=== PATIENT | female | born 1985 | race Caucasian/White ===

== ENCOUNTER 2018-06-10 18:53 | Emergency (ER) | payer OTHER, BC ==
[2018-06-10 19:03] VITALS: BP 122/78; PULSE 105; TEMP 98.2; BMI 38.9
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
[2018-06-10] MEDS ORDERED: KETOROLAC TROMETHAMINE 30 MG/1 ML VIAL IM ONE (20:02)
[2018-06-10] MEDS ORDERED: KETOROLAC TROMETHAMINE 30 MG/1 ML VIAL ONE (20:04)
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
== END 2018-06-10 20:11 | disposition home or self-care (01) ==
LOC: JERFT 18:53
PROC: 3E0233Z Introduction of Anti-inflammatory into Muscle, Percutaneous Approach (ICD-10-PCS; principal; 2018-06-10)
DX: M62.838 Other muscle spasm (principal); V44.5XXA Car driver injured in collision with heavy transport vehicle or bus in traffic accident, initial encounter; Y92.481 Parking lot as the place of occurrence of the external cause; Y93.89 Activity, other specified; Y99.8 Other external cause status
CPT/HCPCS: 84703; 99281-25

== ENCOUNTER 2019-07-17 12:37 | Emergency (ER) | payer BC, OTHER ==
[2019-07-17 12:49] VITALS: BMI 38.9
--- NOTE | 2019-07-17 13:22 | PDOC ---
History of Present Illness - General Chief Complaint: Chest Pain Stated Complaint: chest pain Past History - Past Medical History Allergies/Adverse Reactions: Allergies Allergy/AdvReac Type Severity Reaction Status Date / Time No Known Drug Allergies Allergy Verified 07/17/19 12:46 VANILLA Allergy Hives Uncoded 07/17/19 12:46 Home Medications: Ambulatory Orders Calcium Carb, Citrate/Vit D3 [Citracal + D ER Tablet] 1 each PO BID 07/17/19 Multivitamin [One-Daily Multi-Vitamin] 1 each PO DAILY 07/17/19 Vitamin A 0 unit PO DAILY 07/17/19 Asthma: Yes COPD: No Diabetes: Yes (type 2) HTN: Yes - Surgical History GI Surgery: Yes (sleeve 05/02/19) - Reproductive History (#): 2 Para: 1 - Immunization History Immunization Up to Date: Yes - Psycho Social/Smoking Cessation Hx Smoking Status: No Smoking History: Never smoked Have you smoked in the past 12 months: No Number of Cigarettes Smoked Daily: 0 Information on smoking cessation initiated: No Hx Alcohol Use: No Drug/Substance Use Hx: No Substance Use Type: None *Physical Exam - Vital Signs Last Vital Signs Temp Pulse Resp BP Pulse Ox 98.7 F 84 18 159/100 100 07/17/19 12:46 07/17/19 12:46 07/17/19 12:46 07/17/19 12:46 07/17/19 12:46 ED Treatment Course - LABORATORY CBC & Chemistry Diagram: 07/17/19 14:45 07/17/19 14:45 Medical Decision Making - Medical Decision Making 07/17/19 14:16 HPI: 34yo F hx HTN, HLD, pre-diabetes, LLE DVT (during , was on lovenox, not on AC currently), PCOS, obesity, GERD, and gastric sleeve 05/02/19 (by Dr Shabazz at [facility], 40lb wt loss, no complications) presents from home with acute onset at 1230 while at rest constant stabbing pleuritic L-sided CP radiating to LUE with associated LUE numbness/tingling (resolved), nausea, and hematemesis x1 of 1/2cup bright red blood only. Now just chest soreness and generalized soreness especially in chest and head. Only had cup coffee this AM. Not eating much since surgery due to sleeve, weight loss 40lbs. No hx similar sx, but hx headaches with hematemesis prior to surgery, but that hematemesis was just streaking, never all blood like this. Has implanon control. Denies coffee ground vomit, trauma, HEARN, back pain, fever, chills, fatigue, dizziness, weakness, vision changes, shortness of breath, cough, palpitations, leg swelling , calf tenderness, recent travel, recent illness, complications since surgery, abdominal pain, blood in stool, diarrhea, constipation, dysuria, hematuria, confusion. Endoscope this year prior to surgery showed H Pylori, completed tx. PCP - Abel Conroy Bariatric - Mele at [facility] GI - Dr Fracisco Cook at [facility] ROS: Constitutional: Negative for chills, fever, fatigue, diaphoresis. HENT: Negative for sore throat, rhinorrhea, congestion. Eyes: Negative for visual disturbance. Respiratory: Negative for shortness of breath, cough, and wheezing. Cardiovascular: Negative for chest pain, palpitations, and leg swelling. Gastrointestinal: Positive for weight loss, hematemesis, nausea. Negative for abdominal pain, blood in stool, constipation, diarrhea. Genitourinary: Negative for dysuria, flank pain, and hematuria. Musculoskeletal: Negative for myalgias, back pain, and neck pain. Skin: Negative for rash. Neurological: Negative for light-headedness, dizziness, vertigo, syncope, weakness, numbness and headaches. Psychiatric/Behavioral: Negative for behavioral problems and confusion. PE: Gen: Alert, NAD, comfortable-appearing. HEENT: PERRL, EOMI, MMM, NCAT. No conjunctival pallor. Sclera are non-icteric. Oropharynx is clear. CV: Regular rate and rhythm. No murmurs, rubs, or gallops. PULM: No resp distress. CTAB, no wheezes, rales, or rhonchi. ABD: soft, NT/ND, no rebound tenderness or guarding, no CVA tenderness. BACK: No TTP of c/t/l-spine. No step-offs or deformities. MSK: No bony deformities. 2+ pulses in all extremities. NEURO: AAOx3. PERRL. No gross CN deficits. Strength and sensation grossly intact throughout. EXTREMITIES: No cyanosis. No clubbing. No edema. No calf tenderness. PSYCH: Normal mood and thought pattern. SKIN: Warm and dry. Normal capillary refill. No rashes. No jaundice. MDM: 34yo F hx HTN, HLD, pre-diabetes, LLE DVT (during , was on lovenox, not on AC currently), PCOS, obesity, GERD, and gastric sleeve 05/02/19 ([address] Dr Shabazz at [facility], 40lb wt loss, no complications) presents from home with acute onset constant stabbing pleuritic L-sided CP radiating to LUE with associated LUE numbness/tingling (resolved), nausea, and hematemesis x1 of 1/2cup bright red blood only. Now just chest soreness and generalized soreness. Hemodynamically stable, afebrile, benign exam. Hematemesis and chest pain acute onset concerning for esophageal rupture. Also consider UGIB due to esophagitis, PUD, gastritis, varices, or complication of surgery. Chest pain ddx also includes PE (high concern due to recent surgery, hx DVT, Wells 4.5 moderate), ACS/AZ (HEART 2 due to RFs), PNA, COPD exacerbation , infectious etiologies, anemia, metabolic derangements, or . Lack of tearing nature of chest pain, lack of back pain, lack of hemodynamic instability , and pulses equal bilaterally, dissection of very low concern - no further testing indicated. Spoke with Dr liriano for bariatric surgeon Dr Marin Shabazz at [phone] - agree with current plan, requested CT abdomen/pelvis w/oral contrast in addition to CTPE, not concerned for esophageal rupture due to CXR and presentation and VS, call back with results. -EKG -CXR -CTPE, CTAP w/IV and oral contrast (started at 1445) -CBC,CMP,Coags,Mg,Phos,Lipase,Cardiac profile,Lact,HCG -Consult bariatric surgery -Consider endoscopy and esophagram -Dispo: pending w/u and bariatric rec 07/17/19 15:46 EKG reviewed - NSR, 78bpm, normal axis, prolonged QT, QTc 487ms, no e/o acute ischemia CXR reviewed - no acute pathology Labs reviewed - no concerning findings. 07/17/19 18:24 Pt comfortable, no further sx at this time. CTs reviewed - 1. No evidence of acute pulmonary embolism. 2. Mild to moderate degree cardiomegaly with mild degree of pulmonary venous congestion. The tracheobronchial tree is grossly patent. There is no airspace consolidation or pleural effusion. 3. Small sliding hiatal hernia. Postsurgical changes following gastric sleeve procedure. No evidence of small bowel obstruction or mass. Normal appendix is identified. 4. Heterogeneous and enlarged uterus concerning for fibroids Bariatric surgery called - told to call [phone] - spoke with senior clinical consultant doctor , will consult Dr Shabazz and call me back. -2nd CBC and trop ordered to trend. 07/17/19 18:54 Spoke with bariatric surgery - accepted transfer under Dr Shabazz. Began transfer procedures. Discharge - Discharge Information Problems reviewed: Yes Clinical Impression/Diagnosis: Hematemesis, Chest pain Condition: Stable Disposition: TRANSFER ACUTE CARE/OTHER HOSP - Admission No - Follow up/Referral Referrals: Abel Schroeder MD [Primary Care Provider] - - Patient Discharge Instructions - Post Discharge Activity
--- NOTE | 2019-07-17 14:58 | PDOC ---
Documentation entered by Ana Honeycutt SCRIBE, acting as scribe for Keith Hou MD. Keith Hou MD: This documentation has been prepared by the Tangela foley Joy, SCRIBE, under my direction and personally reviewed by me in its entirety. I confirm that the documentation accurately reflects all work, treatment, procedures, and medical decision making performed by me. Attending Attestation - Resident Resident Name: Kerry Leblanc - ED Attending Attestation I have performed the following: I have examined & evaluated the patient, The case was reviewed & discussed with the resident, I agree w/resident's findings & plan, Exceptions are as noted - HPI HPI: 07/17/19 14:50 The patient is a 34 year old female with significant past medical history of hypertension, hyperlipidemia, diabetes, and polycystic ovarian syndrome who presents to the ED with midsternal chest pain, shortness of breath and hematemesis. Patient had a sudden onset of midsternal pain with associated shortness of breath around 12:30 PM earlier today at rest. Half an hour later, patient had an episode of vomiting where she threw up half a cup of bright red blood. Patient also reports left upper extremity numbness a/w with the chest pain earlier for a few seconds.. Patient had a recent gastric sleeve in April of this year (Dr. Marin Shabazz at [facility]). She states she has never had symptoms like this in the past. Denies fever or chills. Denies dizziness, focal weakness, headache, dark or bloody stools, abd pain, dysuria, LE edema. Denies any other symptoms. - Physicial Exam PE: 07/17/19 14:52 GENERAL: Awake, alert, and fully oriented, in no acute distress. Non toxic, well appearing. HEAD: No signs of trauma EYES: PERRLA, EOMI, sclera anicteric, conjunctiva clear ENT: Oropharynx clear without exudates. Moist mucosa. No blood in OP NECK: Normal ROM, supple, no lymphadenopathy, JVD, or masses. No crepitus LUNGS: Breath sounds equal, clear to auscultation bilaterally. No wheezes, and no crackles HEART: Regular rate and rhythm, normal S1 and S2, no murmurs, rubs or gallops. No crepitus ABDOMEN: Soft, nontender, normoactive bowel sounds. No guarding, no rebound. No masses EXTREMITIES: Normal range of motion, no edema. No clubbing or cyanosis. No cords , erythema, or tenderness BACK: No midline spinal tenderness in cervical/thoracic/lumbar region NEUROLOGICAL: Normal speech, cranial nerves intact, negative pronator drift, 5/ 5 strength in all 4 extremities, normal sensation to light touch in all 4 extremities, normal cerebellar exam, normal gait SKIN: Warm, Dry, normal turgor, no rashes or lesions noted. - Medical Decision Making 07/17/19 14:31 34-year-old female status post recent gastric bypass at [facility] in April 2019 presents the emergency department with sudden onset chest pain, shortness of breath followed by an episode of bright red hematemesis. Vitals on arrival with elevated blood pressure, however this normalized without intervention. Otherwise vitals within normal limits. Exam unremarkable. EKG nonischemic. Differential includes esophageal rupture versus pulmonary embolism versus acute coronary syndrome versus pneumonia versus gastritis versus GERD. Chest x-ray thus far with no evidence of pneumomediastinum, pneumothorax, or pneumoperitoneum. This is not the most sensitive measure for esophageal rupture and thus case has been discussed with the patient's bariatric surgeon at [facility] who is not as concerned for esophageal rupture given patient's pain has subsided in the emergency department. Patient has multiple risk factors for pulmonary embolism including control, recent surgery, and history of DVT while . As such we will proceed with a CTA of the chest to rule out PE. Patient's bariatric surgeon also requested a CT scan of the abdomen and pelvis with p.o contrast Plan for labs, urinalysis, CTA of the chest, CTA abdomen and pelvis with IV and p.o. contrast, monitoring and reassess.
[2019-07-17 15:02] LABS: BASO % 0.5 % (0-2.0); EOS % 1.5 % (0-4.5); HEMATOCRIT 42.7 % (32.4-45.2); HEMOGLOBIN 14.3 GM/dL (10.7-15.3); LYMPH % 27.4 % (8-40); MCH 30.2 pg (25.7-33.7); MCHC 33.6 g/dl (32.0-36.0); MEAN CELL VOLUME 89.9 fl (80-96); MEAN PLT VOLUME 9.5 fl (7.5-11.1); MONO % 4.2 % (3.8-10.2); NEUT % 66.4 % (42.8-82.8); PLATELET COUNT 334 K/MM3 (134-434); RBC 4.74 M/mm3 (3.60-5.2); RDW 13.1 % (11.6-15.6); WHITE BLOOD COUNT 8.3 K/mm3 (4.0-10.0)
[2019-07-17 15:15] LABS: INR 1.1 (0.83-1.09)
[2019-07-17 15:18] LABS: ACTIVATED PTT 36.7 SECONDS (25.2-36.5)
[2019-07-17 15:30] LABS: ALK PHOS 58 U/L (45-117); ANION GAP 9 MMOL/L (8-16); BILIRUBIN,TOTAL 0.4 mg/dL (0.2-1); BLOOD UREA NITROGEN 10.3 mg/dL (7-18); CALCIUM 9.5 mg/dL (8.5-10.1); CHLORIDE 107 mmol/L (98-107); CO2 25 mmol/L (21-32); CREATININE 0.7 mg/dL (0.55-1.3); GLUCOSE,RANDOM 79 mg/dL (74-106); LIPASE 114 U/L (73-393); MAGNESIUM 2.4 mg/dL (1.8-2.4); PHOSPHOROUS 3.4 mg/dL (2.5-4.9); SGOT/AST 14 U/L (15-37); SGPT/ALT 20 U/L (13-61); SODIUM 141 mmol/L (136-145); TOT PROT 7.9 g/dl (6.4-8.2)
--- NOTE | 2019-07-17 17:50 | EKG ---
Test Reason : Blood Pressure : / mmHG Vent. Rate : 078 BPM Atrial Rate : 078 BPM P-R Int : 146 ms QRS Dur : 080 ms QT Int : 428 ms P-R-T Axes : 062 032 031 degrees QTc Int : 487 ms POOR DATA QUALITY, INTERPRETATION MAY BE ADVERSELY AFFECTED NORMAL SINUS RHYTHM PROLONGED QT ABNORMAL ECG WHEN COMPARED WITH ECG OF 27-AUG-2015 11:10, NO SIGNIFICANT CHANGE WAS FOUND Confirmed by AMARI RODRIGEZ MD ([id number]) on 07/17/2019 5:50:04 PM Referred By: Confirmed By:AMARI RODRIGEZ MD
--- NOTE | 2019-07-17 18:48 | PDOC ---
*Physical Exam - Vital Signs Last Vital Signs Temp Pulse Resp BP Pulse Ox 98.7 F 84 18 139/86 100 07/17/19 12:46 07/17/19 13:41 07/17/19 13:41 07/17/19 13:41 07/17/19 13:41 ED Treatment Course - LABORATORY CBC & Chemistry Diagram: 07/17/19 19:38 07/17/19 14:45 - ADDITIONAL ORDERS Additional order review: Laboratory Results 07/17/19 07/17/19 07/17/19 14:45 14:45 14:45 PT with INR INR PTT (Actin FS) Sodium 141 Potassium 4.0 Chloride 107 Carbon Dioxide 25 Anion Gap 9 BUN 10.3 Creatinine 0.7 Est GFR (CKD-EPI)AfAm 131.94 Est GFR (CKD-EPI)NonAf 113.84 Random Glucose 79 Lactic Acid 0.9 Calcium 9.5 Phosphorus 3.4 Magnesium 2.4 Total Bilirubin 0.4 AST 14 L ALT 20 Alkaline Phosphatase 58 Creatine Kinase 67 Troponin I < 0.02 Total Protein 7.9 Albumin 4.0 Lipase 114 Beta HCG, Quant < 1.0 Blood Type AB POSITIVE Antibody Screen Negative 07/17/19 14:45 PT with INR 13.00 INR 1.10 H PTT (Actin FS) 36.7 H Sodium Potassium Chloride Carbon Dioxide Anion Gap BUN Creatinine Est GFR (CKD-EPI)AfAm Est GFR (CKD-EPI)NonAf Random Glucose Lactic Acid Calcium Phosphorus Magnesium Total Bilirubin AST ALT Alkaline Phosphatase Creatine Kinase Troponin I Total Protein Albumin Lipase Beta HCG, Quant Blood Type Antibody Screen 07/17/19 14:45 RBC 4.74 MCV 89.9 MCHC 33.6 RDW 13.1 MPV 9.5 Neutrophils % 66.4 Lymphocytes % 27.4 Monocytes % 4.2 Eosinophils % 1.5 Basophils % 0.5 Medical Decision Making - Medical Decision Making 07/17/19 18:45 Pt s/p gastric bypass @[facility] in Apr of this year. She now has epigastric pain and she coughed/vomited up 1/4 cup of blood. She is pending CTA chest to r/o PE and she is awaiting CT abd/pelvis to r/o esophageal perforation/other perf. Her labs are normal and her vitals are ok. She will likely be admitted for observation and serial CBC to look for falling hb/hct and rising WBC 07/17/19 18:55 Pt will be transferred to the [facility] floor vs ER Her bariatric surgeon agrees that she requires an endoscopy Patient Name: CHIKIS BURROWS THIS IS A PRELIMINARY REPORT FROM [facility]. DATE OF SERVICE: 2019-07-17 17:16:39 IMAGES: [id number] EXAM: CTA CHEST WITH IV CONTRAST AND CT ABDOMEN AND PELVIS WITH IV CONTRAST HISTORY: Evaluate for pulmonary embolism and hematemesis.. FINDINGS: Chest: Pulmonary embolism: No evidence of acute pulmonary embolism. LUNGS: Mild degree of pulmonary venous congestion. The tracheobronchial tree is grossly patent. There is no airspace consolidation, pleural effusion or pneumothorax. CARDIOVASCULAR: Mild to moderate cardiomegaly. There is no significant pericardial effusion. The thoracic aorta and arch vessels are normal in caliber.. Mediastinum and Hallie: There is no clinically significant axillary, mediastinal or hilar lymphadenopathy. Chest Wall and Lower Neck: Within normal limits. Abdomen: Liver:: Hepatomegaly with steatosis. Bile Ducts: Within normal limits. Gallbladder:: Within normal limits. Pancreas:: Within normal limits. Spleen:: Within normal limits. Adrenals: Within normal limits. Kidneys: No evidence of hydronephrosis or nephrolithiasis. Small left renal cyst. Stomach:: Small sliding hiatal hernia. Postsurgical changes following gastric sleeve procedure. Bowel:: No evidence of small bowel obstruction or mass. Normal appendix is identified. Pelvis: Reproductive Organs: Heterogeneous and enlarged uterus concerning for fibroids. Bladde: Within normal limits. Vessels: Aorta: Within the normal limits without aneurysm or dissection. Retroperitoneum: Within normal limits. Bones: : No suspicious osseous lesions. IMPRESSION: 1. No evidence of acute pulmonary embolism. 2. Mild to moderate degree cardiomegaly with mild degree of pulmonary venous congestion. The tracheobronchial tree is grossly patent. There is no airspace consolidation or pleural effusion. 3. Small sliding hiatal hernia. Postsurgical changes following gastric sleeve procedure. No evidence of small bowel obstruction or mass. Normal appendix is identified. 4. Heterogeneous and enlarged uterus concerning for fibroids. Perhaps the bleeding is due to the hiatal hernia. Pt is stable for transfer 07/18/19 05:21 Discharge - Discharge Information Problems reviewed: Yes Clinical Impression/Diagnosis: Hematemesis, Chest pain Condition: Stable Disposition: TRANSFER ACUTE CARE/OTHER HOSP - Follow up/Referral Referrals: Abel Schroeder MD [Primary Care Provider] - - Patient Discharge Instructions - Post Discharge Activity
[2019-07-17 19:48] LABS: BASO % 0.8 % (0-2.0); EOS % 1.9 % (0-4.5); HEMATOCRIT 41.3 % (32.4-45.2); HEMOGLOBIN 13.4 GM/dL (10.7-15.3); LYMPH % 28.5 % (8-40); MCH 29.6 pg (25.7-33.7); MCHC 32.5 g/dl (32.0-36.0); MEAN CELL VOLUME 91.1 fl (80-96); MEAN PLT VOLUME 9.5 fl (7.5-11.1); MONO % 5.3 % (3.8-10.2); NEUT % 63.5 % (42.8-82.8); PLATELET COUNT 318 K/MM3 (134-434); RBC 4.53 M/mm3 (3.60-5.2); RDW 12.9 % (11.6-15.6); WHITE BLOOD COUNT 8.6 K/mm3 (4.0-10.0)
[2019-07-17 20:03] VITALS: BP 130/87; PULSE 77; TEMP 98
== END 2019-07-17 20:27 | disposition short-term general hospital (02) ==
LOC: JER 12:37
DX: K92.0 Hematemesis (principal); R07.9 Chest pain, unspecified; I10 Essential (primary) hypertension; E78.5 Hyperlipidemia, unspecified; R73.03 Prediabetes; Z86.718 Personal history of other venous thrombosis and embolism; K21.9 Gastro-esophageal reflux disease without esophagitis; E28.2 Polycystic ovarian syndrome; E66.9 Obesity, unspecified; Z68.39 Body mass index [BMI] 39.0-39.9, adult; Z98.84 Bariatric surgery status; Z91.018 Allergy to other foods
CPT/HCPCS: 36415; 71046-TC-FY; 71275-TC; 74177-TC; 80053; 82550; 83605; 83690; 83735; 84100; 84484; 84702; 85025; 85610; 85730; 86850; 86900; 86901; 93005; 93010; 99285-25; Q9967